=== PATIENT | female | born 1995 | race Caucasian/White ===

== ENCOUNTER 2017-01-07 15:26 | Emergency (ER) | payer OTHER ==
--- NOTE | 2017-01-07 15:30 | PDOC ---
Attending Attestation - Resident Resident Name: Cole Smith - ED Attending Attestation I have performed the following: I have examined & evaluated the patient, The case was reviewed & discussed with the resident, I agree w/resident's findings & plan, Exceptions are as noted - HPI HPI: 01/07/17 15:30 Heroid Overdose - Physicial Exam PE: 01/07/17 15:30 Barely Breathing - Responds to deep painful stimuli - Medical Decision Making 01/07/17 15:[address] Smith Assessment and Plan
[2017-01-07 15:41] VITALS: TEMP 98.2; BMI 23.8
[2017-01-07] MEDS ORDERED: NALOXONE HCL 0.4 MG/ML VIAL ONE (15:43)
[2017-01-07] MEDS ORDERED: SODIUM CHLORIDE 1,000 ML IV STA (15:52)
--- NOTE | 2017-01-07 15:53 | PDOC ---
History of Present Illness - General Chief Complaint: Overdose Stated Complaint: OVERDOSE Time Seen by Provider: 01/07/17 15:29 History Source: Patient, Friend - History of Present Illness Initial Comments: 01/07/17 15:48 Patient is a 21F with history of asthma here today via private vehicle for opiate overdose. Patient's friend reports that she snorted two bags of heroin just prior to presentation. He found her down and cyanotic. She was unresponsive to water splashed on her face and sternal rub. She was then brought in by her friend. Her friend reports no vomiting. Past History - Past Medical History Allergies/Adverse Reactions: Allergies Allergy/AdvReac Type Severity Reaction Status Date / Time No Known Allergies Allergy Verified 07/24/15 17:00 Home Medications: Ambulatory Orders Albuterol 0.083% Nebulizer Chhaya [Ventolin 0.083% Nebulizer Soln -] 1 neb NEB Q6H #30 vial 02/23/14 Albuterol Sulfate Inhaler - [Ventolin HFA Inhaler -] 2 inh PO Q4H 02/23/14 Metoclopramide HCl [Reglan] 10 mg PO TID PRN #20 tablet 07/24/15 Tramadol HCl [Ultram] 50 mg PO BID PRN #7 tablet 07/24/15 Asthma: Yes (reactive airway) - Immunization History TDAP Vaccination: Yes Immunization Up to Date: Yes - Psycho/Social/Smoking Cessation Hx Anxiety: No Suicidal Ideation: No Smoking Status: No Smoking History: Current every day smoker Have you smoked in the past 12 months: Yes Number of Cigarettes Smoked Daily: 10 Information on smoking cessation initiated: No Hx Alcohol Use: No Drug/Substance Use Hx: Yes Substance Use Type: Heroin, Marijuana Review of Systems - Review of Systems Comments:: 01/07/17 15:53 GENERAL/CONSTITUTIONAL: No fever or chills. No weakness. HEAD, EYES, EARS, NOSE AND THROAT: No change in vision. No ear pain or discharge. No sore throat. CARDIOVASCULAR: No chest pain or shortness of breath RESPIRATORY: No cough, wheezing, or hemoptysis. GASTROINTESTINAL: No nausea, vomiting, diarrhea or constipation. GENITOURINARY: No dysuria, frequency, or change in urination. MUSCULOSKELETAL: No joint or muscle swelling or pain. No neck or back pain. SKIN: No rash NEUROLOGIC: No headache, positive for loss of consciousness ALLERGIC/IMMUNOLOGIC: No hives or skin allergy. *Physical Exam - Vital Signs Last Vital Signs Temp Pulse Resp BP Pulse Ox 98.2 F 130 H 18 140/95 100 01/07/17 15:35 01/07/17 15:35 01/07/17 15:35 01/07/17 15:35 01/07/17 15:35 - Physical Exam Comments: 01/07/17 15:54 - Initially GENERAL: Sleepy and difficult to arouse HEAD: No signs of trauma, normocephalic, atraumatic EYES: Pinpoint pupils sclera anicteric, conjunctiva clear ENT: Auricles normal inspection, hearing grossly normal, nares patent, oropharynx clear without exudates. LUNGS: No distress, speaks full sentences, clear to auscultation bilaterally HEART: Regular rate and rhythm, normal S1 and S2, no murmurs, rubs or gallops, peripheral pulses normal and equal bilaterally. EXTREMITIES: Normal inspection, Normal range of motion, no edema. No clubbing or cyanosis. Post-narcan GENERAL: Awake, alert, and fully oriented, in no acute distress HEAD: No signs of trauma, normocephalic, atraumatic EYES: EOMI, sclera anicteric, conjunctiva clear ENT: Auricles normal inspection, hearing grossly normal, nares patent, oropharynx clear without exudates. LUNGS: No distress, speaks full sentences, clear to auscultation bilaterally HEART: Regular rate and rhythm, normal S1 and S2, no murmurs, rubs or gallops, peripheral pulses normal and equal bilaterally. ABDOMEN: Soft, nontender, normoactive bowel sounds. No guarding, no rebound. No masses EXTREMITIES: Normal inspection, Normal range of motion, no edema. No clubbing or cyanosis. NEUROLOGICAL: Cranial nerves II through XII grossly intact. Normal speech, normal gait, no focal sensorimotor deficits SKIN: Warm, Dry, normal turgor, no rashes or lesions noted. Medical Decision Making - Medical Decision Making 01/07/17 15:56 21F with history of asthma coming in with drug overdose. Responsive to 0.8mg narcan. Alert, oriented, no focal neuro deficits, afebrile, no seizure activity reported. Tachycardic, vital signs otherwise stable and normal. Will give 1L of fluid, will monitor past narcan duration of action, then discharge. 01/07/17 16:58 Vital signs still normal and stable, normal mental status. In ED for 90 minutes from narcan. Discharged home. Educated on risks of heroin use. *DC/Admit/Observation/Transfer Diagnosis at time of Disposition: Diacetylmorphine overdose Qualifiers: Encounter type: initial encounter Injury intent: undetermined intent Qualified Code(s): T40.1X4A - Poisoning by heroin, undetermined, initial encounter - Discharge Dispostion Disposition: HOME Condition at time of disposition: Good Admit: No - Patient Instructions Printed Discharge Instructions: DI for Drug Overdose in Adults
[2017-01-07 17:08] VITALS: BP 118/76; PULSE 102
--- NOTE | 2017-01-17 23:16 | EKG ---
Test Reason : Blood Pressure : / mmHG Vent. Rate : 108 BPM Atrial Rate : 108 BPM P-R Int : 152 ms QRS Dur : 074 ms QT Int : 358 ms P-R-T Axes : 066 068 022 degrees QTc Int : 479 ms SINUS TACHYCARDIA POSSIBLE LEFT ATRIAL ENLARGEMENT BORDERLINE ECG NO PREVIOUS ECGS AVAILABLE Confirmed by PASTORA GARDINER MD ([id number]) on 01/17/2017 11:16:11 PM Referred By: Confirmed By:PASTORA GARDINER MD
== END 2017-01-07 17:08 | disposition home or self-care (01) ==
LOC: JER 15:26
PROC: 3E0337Z Introduction of Electrolytic and Water Balance Substance into Peripheral Vein, Percutaneous Approach (ICD-10-PCS; principal; 2017-01-07)
DX: T40.1X4A Poisoning by heroin, undetermined, initial encounter (principal); R40.20 Unspecified coma
CPT/HCPCS: 93005; 93010; 96360; 99282-25

== ENCOUNTER 2017-06-16 22:35 | Emergency (ER) | payer SELFPAY ==
[2017-06-16 22:58] VITALS: BP 127/85; PULSE 96; TEMP 98.6; BMI 24.4
--- NOTE | 2017-06-16 23:02 | PDOC ---
History of Present Illness - General Chief Complaint: Overdose Stated Complaint: Overdose Time Seen by Provider: 06/16/17 23:02 - History of Present Illness Initial Comments: 21 year old female [place] with PMH of heroin abuse presenting after a heroin overdose and in field narcan administration. Per EMS they found her in her car semi responsive and administered 2 MG of narcan with good response and subsequent sinus tachycardia. She was completely awake, alert, and oriented on my interview without obvious sign of intoxication. 06/17/17 02:48 Past History - Past Medical History Allergies/Adverse Reactions: Allergies Allergy/AdvReac Type Severity Reaction Status Date / Time No Known Allergies Allergy Verified 06/16/17 22:45 Home Medications: Ambulatory Orders Albuterol 0.083% Nebulizer Chhaya [Ventolin 0.083% Nebulizer Soln -] 1 neb NEB Q6H #30 vial 02/23/14 Albuterol Sulfate Inhaler - [Ventolin HFA Inhaler -] 2 inh PO Q4H 02/23/14 Asthma: Yes (reactive airway) - Immunization History TDAP Vaccination: Yes Immunization Up to Date: Yes - Suicide/Smoking/Psychosocial Hx Smoking Status: No Smoking History: Unknown if ever smoked Have you smoked in the past 12 months: No Number of Cigarettes Smoked Daily: 10 Information on smoking cessation initiated: No Hx Alcohol Use: No Drug/Substance Use Hx: No Substance Use Type: Heroin, Marijuana Review of Systems - Review of Systems Constitutional: No: Chills, Diaphoresis, Fever, Loss of Appetite HEENTM: No: Eye Pain, Blurred Vision, Double Vision, Cataracts Respiratory: No: Cough, Orthopnea, Shortness of Breath Cardiac (ROS): No: Chest Pain, Irregular Heart Rate, Palpitations, Syncope ABD/GI: No: Constipated, Diarrhea, Nausea, Vomiting : No: Burning, Dysuria, Discharge Musculoskeletal: No: Back Pain, Joint Pain Integumentary: No: Bruising, Change in Color, Flushing, Lesions Neurological: No: Headache, Numbness Psychiatric: Yes: Anxiety, Stressors, Mood Swings *Physical Exam - Vital Signs Last Vital Signs Temp Pulse Resp BP Pulse Ox 98.6 F 96 H 18 127/85 97 06/16/17 22:45 06/16/17 22:45 06/16/17 22:45 06/16/17 22:45 06/16/17 22:45 - Physical Exam General Appearance: Yes: Nourished, Appropriately Dressed. No: Apparent Distress HEENT: positive: EOMI, EULALIA, Normal ENT Inspection. negative: Normal Voice Neck: positive: Trachea midline, Normal Thyroid, Supple. negative: Tender, Rigid Respiratory/Chest: positive: Lungs Clear, Normal Breath Sounds. negative: Chest Tender, Respiratory Distress, Accessory Muscle Use Cardiovascular: positive: Regular Rhythm, Tachycardia. negative: Regular Rate Gastrointestinal/Abdominal: positive: Normal Bowel Sounds, Flat, Soft. negative : Tender Musculoskeletal: positive: Normal Inspection. negative: CVA Tenderness Extremity: positive: Normal Capillary Refill, Normal Inspection, Normal Range of Motion. negative: Tender Integumentary: positive: Normal Color, Dry, Warm Neurologic: positive: scale manager II-XII NML intact, Fully Oriented, Alert, Normal Response. negative: Normal Mood/Affect (Curses frequently and tends to get angry) Medical Decision Making - Medical Decision Making 21 year old female presenting 30 minutes after narcan administration. Patient slightly tachy to 104 on exam but otherwise well and not intoxicated. 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 We originally wanted to give one more dose of Narcan before discharging her but she refused. She was not expressing SI/HI during any part of our interactions and the overdose of heroin was complete accidental as she hasn't used in 8 months and her tolerance had declined. She understood the risks and she only took a half of a bag of heroin intranasally. She had a safe discharge with her mother. Gave follow up instructions and counselled her on seeking mental help at her school. At the end of the conversation, I gave her return precautions. 06/17/17 19:37 *DC/Admit/Observation/Transfer Diagnosis at time of Disposition: Narcotic overdose Qualifiers: Encounter type: initial encounter Injury intent: accidental or unintentional Qualified Code(s): T40.601A - Poisoning by unspecified narcotics, accidental ( unintentional), initial encounter - Discharge Dispostion Disposition: HOME Condition at time of disposition: Improved Admit: No - Referrals Referrals: Jeremy Iraheta MD [Primary Care Provider] - - Patient Instructions Printed Discharge Instructions: DI for Drug Overdose in Adults Additional Instructions: You overdosed on heroin today. Please stop using heroin. We gave you narcan which reversed the effects of the heroin at the receptor level. Please seek help with your school's mental health resources as they can help you stay sober. Please also avoid triggers or people that would want ot make you use heroin again. - Post Discharge Activity
--- NOTE | 2017-06-16 23:34 | PDOC ---
Attending Attestation - Resident Resident Name: Radha Chen - ED Attending Attestation I have performed the following: I have examined & evaluated the patient, The case was reviewed & discussed with the resident, I agree w/resident's findings & plan, Exceptions are as noted - HPI HPI: 06/17/17 00:01 patient use heroin just prior to presentation. Was given 2 mg of Narcan by EMS and is now awake. Pt is currently accompanied by mother - Physicial Exam PE: 06/17/17 00:00 *Physical Exam General Appearance: Yes: Appropriately Dressed. No: Apparent Distress, Intoxicated HEENT: positive: EOMI, EULALIA, Normal ENT Inspection, Normal Voice, TMs Normal, Pharynx Normal. negative: Pale Conjunctivae, Photophobia, Scleral Icterus (R), Scleral Icterus (L) Neck: positive: Trachea midline, Normal Thyroid, Supple. negative: Tender, Rigid, Carotid bruit, Stridor, Lymphadenopathy (R), Lymphadenopathy (L), Thyromegaly Respiratory/Chest: positive: Lungs Clear, Normal Breath Sounds. negative: Chest Tender, Respiratory Distress, Accessory Muscle Use, Labored Respiration, RES, Crackles, Rales, Rhonchi, Stridor, Wheezing, Dullness Cardiovascular: positive: Regular Rhythm, Regular Rate, S1, S2. negative: Edema , JVD, Murmur, Bradycardia, Tachycardia Vascular Pulses: Dorsalis-Pedis (R): 2+, Doralis-Pedis (L): 2+ Gastrointestinal/Abdominal: positive: Normal Bowel Sounds, Flat, Soft. negative : Tender, Organomegaly, Pulsatile Mass, Increased Bowel Sounds, Decreased BS, Distended, Guarding, Rebound, Hernia, Hepatomegaly, Spleenomegaly Lymphatic: negative: Adenopathy, Tenderness Musculoskeletal: positive: Normal Inspection. negative: CVA Tenderness, Decreased Range of Motion Extremity: positive: Normal Capillary Refill, Normal Inspection, Normal Range of Motion, Pelvis Stable. negative: Tender, Pedal Edema, Swelling, Erythema Integumentary: positive: Normal Color, Dry, Warm. negative: Cyanotic, Erythema , Jaundice, Rash Neurologic: positive: hitting coach II-XII NML intact, Fully Oriented, Alert, Normal Mood/ Affect, Motor Strength 5/5. negative: EOM Palsy, Facial Droop, Sensory Deficit - Medical Decision Making 06/17/17 00:02 Pt treated and released. Currently accompanied by mother. Mother will take her home.
[2017-06-16] MEDS ORDERED: NALOXONE HCL 0.4 MG/ML VIAL IVPUSH ONE (23:57)
[2017-06-16] MEDS ORDERED: NALOXONE HCL 0.4 MG/ML VIAL ONE (23:59)
[2017-06-17] MEDS ORDERED: NALOXONE HCL 0.4 MG/ML VIAL IVPUSH ONE
--- NOTE | 2017-06-19 08:43 | EKG ---
Test Reason : Blood Pressure : / mmHG Vent. Rate : 101 BPM Atrial Rate : 101 BPM P-R Int : 136 ms QRS Dur : 070 ms QT Int : 350 ms P-R-T Axes : 064 047 021 degrees QTc Int : 453 ms SINUS TACHYCARDIA OTHERWISE NORMAL ECG WHEN COMPARED WITH ECG OF 07-JAN-2017 15:35, NO SIGNIFICANT CHANGE WAS FOUND Confirmed by TONY MOSER MD ([id number]) on 06/19/2017 8:43:33 AM Referred By: Confirmed By:TONY MOSER MD
== END 2017-06-17 00:19 | disposition home or self-care (01) ==
LOC: JER 22:35
DX: T40.1X1A Poisoning by heroin, accidental (unintentional), initial encounter (principal); Y92.810 Car as the place of occurrence of the external cause
CPT/HCPCS: 93005; 93010; 99281-25

== ENCOUNTER 2019-01-02 13:59 | Inpatient (IN) | payer OTHER ==
[2019-01-02 16:08] VITALS: BMI 21.6
--- NOTE | 2019-01-02 17:09 | HP ---
COWS - Scale Resting Pulse: 0= [place] 80 or Below Sweatin= Chills/Flushing Restless Observation: 3= Extraneous Movement Pupil Size: 1= Pupils >than Normal Bone or Joint Aches: 1= Mild Discomfort Runny Nose/ Eye Tearin= Runny Nose/Eyes GI Upset > 30mins: 1= Stomach Cramp Tremor Observation: 0= None Yawning Observation: 0= None Anxiety or Irritability: 2=Irritable/Anxious Goose Flesh Skin: 0=Smooth Skin COWS Score: 11 CIWA Score Nausea/Vomitin-No Nausea/No Vomiting Muscle Tremors: None Anxiety: 2 Agitation: 4-Moderately Restless Paroxysmal Sweats: 2 Orientation: 0-Oriented Tacttile Disturbances: 0-None Auditory Disturbances: 0-None Visual Disturbances: 2-Mild Sensitivity Headache: 3-Moderate CIWA-Ar Total Score: 13 - Admission Criteria [facility] Guidelines: Admission for Medically Managed Detox: Requires at least one of the followin. CIWA greater than 12 2. Seizures within the past 24 hours 3. Delirium tremens within the past 24 hours 4. Hallucinations within the past 24 hours 5. Acute intervention needed for co occurring medical disorder 6. Acute intervention needed for co occurring psychiatric disorder 7. Severe withdrawal that cannot be handled at a lower level of care (continued vomiting, continued diarrhea, abnormal vital signs) requiring intravenous medication and/or fluids 8. Admission ROS [facility] Allergies/Adverse Reactions: Allergies Allergy/AdvReac Type Severity Reaction Status Date / Time peanut Allergy Mild Swelling Verified 01/02/19 15:57 bee venom protein (honey bee) Allergy Swelling Verified 01/02/19 15:57 No Known Drug Allergies Allergy Verified 01/02/19 17:25 History of Present Illness: This report was requested by: Nicole Marvin | Reference #: [id number] Others' Prescriptions Patient Name: Sarita Victor Date: 1995 Address: [address] [place] [address] Sex: Female Rx Written Rx Dispensed Drug Quantity Days Supply Prescriber Name 12/08/2018 12/08/2018 lorazepam 1 mg tablet 15 2 [facility] [employer] 03/14/2018 03/24/2018 suboxone 12 mg-3 mg sl film 30 30 JadonChristine whitleyab 01/03/2018 01/05/2018 buprenorphine-naloxone 8-2 mg sl tablet 30 15 Jorge Diop Patient Name: Leelee Victor Date: 1995 Address: [address] [place] [address] Sex: Female Rx Written Rx Dispensed Drug Quantity Days Supply Prescriber Name 11/27/2018 11/27/2018 chlordiazepoxide 5 mg capsule 33 5 DavidHilaria Andriy [employer] pt here requesting detox from heroin use , reports first age of use 19 , current daily use 10 bags IVDU in ancelmo UE , detox x 2 did not complete ( [facility] ) most recently 1 mo ago , latest heroin use yesterday evening , current symptoms as above . Longest sobriety x 7 months while taking Methadone . Abscess x one , OD " a lot " , latest Narcan administered 1 yr ago at [facility] pt was taking Suboxone 2 years ago , then Methadone 2017 - September 2018 [facility] MDD 130 mg , left voluntarily . cocaine : daily 50 $ via inhalation since 1 yr ago oxy: denies cannabis : daily 20 $ since age 14 etoh : 3 cups liquor /day x 5 years , denies seizures , + blackouts when drinking reports illicit xanax use 2 mg , latest use 3 days ago . tobacco : 1 ppd LMP September 2018 , IUD 2016 PMHX : asthma dx 2015 ( hospitalized 2015 , never intubated , has albuterol inhaler), hep C dx 2018 , no tx yet 2/2 ongoing [facility] . PShx : denies PSych : denies meds : inhaler Social hx : lives w/ mother , unemployed , finances habit through money from friends , BF , pawning [employer] . Legal : probation drug-related x 3 years . Exam Limitations: Clinical Condition - Ebola screening Have you traveled outside of the country in the last 21 days: No Have you had contact with anyone from an Ebola affected area: No Do you have a fever: No - Review of Systems Constitutional: See HPI, Chills, Loss of Appetite EENT: reports: Other (glasses myopia) Respiratory: reports: See HPI Cardiac: reports: No Symptoms Reported GI: reports: See HPI : reports: No Symptoms Reported Musculoskeletal: reports: See HPI Integumentary: reports: Other (ivdu ancelmo UE) Neuro: reports: Headache Endocrine: reports: No Symptoms Reported Psychiatric: reports: Orientated x3, Agitated, Anxious Patient History - Patient Medical History Hx Asthma: Yes (reactive airway) Hx Chronic Obstructive Pulmonary Disease (COPD): No - Smoking Cessation Smoking history: Unknown if ever smoked Have you smoked in the past 12 months: No Aproximately how many cigarettes per day: 10 Hx Chewing Tobacco Use: No - Substances abused Alcohol Substance route: Oral Frequency: 3-6 times per week Amount used: 3 cups hen[place] Age of first use: 17 Date of last use: 01/02/19 Heroin Substance route: Inhalation Frequency: Daily Amount used: 10 bags Age of first use: 19 Date of last use: 01/01/19 Crack Substance route: Smoking Frequency: Daily Amount used: $30 Age of first use: 22 Date of last use: 01/01/19 Family Disease History - Family Disease History Family Disease History: Other: Father (A & W ), Mother (A & W ), Sister (2 older sisters , no TRICIA ) Admission Physical Exam [facility] - Vital Signs Vital Signs: Vital Signs - 24 hr 01/02/19 15:54 Temperature 98 F Pulse Rate 70 Respiratory 18 Rate Blood Pressure 112/61 - Physical General Appearance: Yes: Mild Distress, Moderate Distress, Irritable, Anxious HEENTM: Yes: EOMI, Hearing grossly Normal, Normocephalic, Normal Voice Respiratory: Yes: Lungs Clear, Normal Breath Sounds, No Respiratory Distress, No Accessory Muscle Use Neck: Yes: No masses,lesions,Nodules, Trachea in good position Cardiology: Yes: Regular Rhythm, Regular Rate, S1, S2, Other (QTC 453 ms 2017) Abdominal: Yes: Non Tender, Flat, Soft, Increased Bowel Sounds Musculoskeletal: Yes: Gait Steady Extremities: Yes: Normal Range of Motion, Non-Tender Neurological: Yes: Fully Oriented, Alert, Motor Strength 5/5 Integumentary: Yes: Warm, Track Madrigal (ANCELMO UE antecubital no abscess) - Diagnostic (1) Opioid dependence Current Visit: Yes Status: Acute Qualifiers: Substance use status: in withdrawal Qualified Code(s): F11.23 - Opioid dependence with withdrawal (2) Cocaine dependence Current Visit: Yes Status: Chronic Qualifiers: Substance use status: uncomplicated Qualified Code(s): F14.20 - Cocaine dependence, uncomplicated (3) Nicotine dependence Current Visit: Yes Status: Acute Qualifiers: Nicotine product type: cigarettes (4) Cannabis dependence Current Visit: Yes Status: Chronic (5) Alcohol dependence Current Visit: Yes Status: Acute Qualifiers: Substance use status: in withdrawal Breathalyzer - Breathalyzer Breathalyzer: 0 Urine Drug Screen - Test Device Lot number: [id number] Expiration date: 10/06/20 - Control Is test valid?: Yes - Results Drug screen NEGATIVE: No Urine drug screen results: THC-Marijuana, JOSEPHINE-Cocaine, MOP-Opiates, OXY- Oxycodone, MTD-Methadone Inpatient Rehab Admission - Rehab Decision to Admit Inpatient rehab admission?: No
[2019-01-02] MEDS ORDERED: MELATONIN 5 MG TABLETS PO PRN (17:18)
[2019-01-02] MEDS ORDERED: MAGNESIUM CITRATE 300 ML BOTTLE PO PRN (17:18)
[2019-01-02] MEDS ORDERED: ACETAMINOPHEN 325 MG TABLET (FP) PO PRN ×2 (17:18)
[2019-01-02] MEDS ORDERED: BISMUTH SUBSALICYLATE 524 MG/30 ML UD PO PRN (17:18)
[2019-01-02] MEDS ORDERED: MAGNESIUM HYDROX 2400MG/30ML ORAL SUSPENSION 30 ML CUP PO PRN (17:18)
[2019-01-02] MEDS ORDERED: IBUPROFEN 400 MG TABLET (FP) PO PRN (17:18)
[2019-01-02] MEDS ORDERED: MAG HYDROX/AL HYDROX/SIMETH 30 ML UNIT-DOSE CUP PO PRN (17:18)
[2019-01-02] MEDS ORDERED: MENTHOL/PHENOL 1 EACH UD MM PRN (17:18)
[2019-01-02] MEDS ORDERED: chlordiazePOXIDE HCL 10 MG CAPSULE PO PRN (17:21)
[2019-01-02] MEDS ORDERED: ALBUTEROL SO4 0.083% IH SOL 2.5 MG/3 ML VIAL.NEB. NEB PRN (17:22)
[2019-01-02] MEDS: ALBUTEROL SO4 8 GM HFA INHALER IH SCH ×2 (18:24→21:12)
[2019-01-02] MEDS ORDERED: METHADONE HCL 10 MG TABLET (FOR DETOX USE ONLY) PO ONE (18:30)
[2019-01-02] MEDS: METHOCARBAMOL 500 MG TABLET PO PRN (19:08)
[2019-01-02] MEDS: NICOTINE POLACRILEX 2 MG GUM BUC PRN ×2 (19:08→21:08)
[2019-01-02] MEDS: hydrOXYzine PAMOATE 25 MG CAPSULE (FP) PO PRN (21:07)
[2019-01-02] MEDS: chlordiazePOXIDE HCL 25 MG CAPSULE PO SCH (21:07)
[2019-01-02] MEDS ORDERED: THIAMINE HCL 100 MG TABLET (FP) PO SCH (22:00)
[2019-01-03] MEDS: ALBUTEROL SO4 8 GM HFA INHALER IH SCH ×3 (05:03→10:41)
[2019-01-03] MEDS: chlordiazePOXIDE HCL 25 MG CAPSULE PO SCH (07:30)
[2019-01-03] MEDS ORDERED: METHADONE HCL 5 MG TABLET (FOR DETOX USE ONLY) ONE (09:19)
[2019-01-03] MEDS ORDERED: METHADONE HCL 10 MG TABLET (FOR DETOX USE ONLY) ONE (09:19)
[2019-01-03 09:36] VITALS: BP 113/55; PULSE 57; TEMP 98.6
[2019-01-03] MEDS ORDERED: METHADONE (DETOX) 20 MG, METHADONE (DETOX) 5 MG PO ONE (10:00)
[2019-01-03] MEDS ORDERED: PRENATAL VITAMINS W/ FOLIC ACID TABLET (FP) PO SCH (10:00)
[2019-01-03 10:09] LABS: HEMATOCRIT 36.7 % (32.4-45.2); HEMOGLOBIN 12.1 GM/dL (10.7-15.3); MCH 27.2 pg (25.7-33.7); MCHC 32.9 g/dl (32.0-36.0); MEAN CELL VOLUME 82.6 fl (80-96); MEAN PLT VOLUME 7.4 fl (7.5-11.1); PLATELET COUNT 321 K/MM3 (134-434); RBC 4.44 M/mm3 (3.60-5.2); RDW 14.2 % (11.6-15.6); WHITE BLOOD COUNT 5.3 K/mm3 (4.0-10.0)
[2019-01-03 10:23] LABS: ALBUMIN 3.5 g/dl (3.4-5.0); BILIRUBIN,TOTAL 0.4 mg/dL (0.2-1); BLOOD UREA NITROGEN 9.2 mg/dL (7-18); CALCIUM 9.2 mg/dL (8.5-10.1); CREATININE 0.7 mg/dL (0.55-1.3); POTASSIUM 4.1 mmol/L (3.5-5.1); TOT PROT 7.1 g/dl (6.4-8.2)
[2019-01-03] MEDS: hydrOXYzine PAMOATE 25 MG CAPSULE (FP) PO PRN (10:42)
[2019-01-03] MEDS: METHOCARBAMOL 500 MG TABLET PO PRN (10:42)
--- NOTE | 2019-01-03 10:57 | EKG ---
Test Reason : Blood Pressure : / mmHG Vent. Rate : 063 BPM Atrial Rate : 063 BPM P-R Int : 138 ms QRS Dur : 084 ms QT Int : 432 ms P-R-T Axes : 047 066 044 degrees QTc Int : 442 ms SINUS RHYTHM WITH PREMATURE ATRIAL COMPLEXES OTHERWISE NORMAL ECG WHEN COMPARED WITH ECG OF 16-JUN-2017 22:47, PREMATURE ATRIAL COMPLEXES ARE NOW PRESENT VENT. RATE HAS DECREASED BY 38 BPM Confirmed by SHANTI HIDALGO, TONY ([id number]) on 01/03/2019 10:56:38 AM Referred By: SAVI LOCKHART Confirmed By:TONY MOSER MD
--- NOTE | 2019-01-03 11:11 | PN ---
[facility] CIWA - CIWA Score Nausea/Vomitin-No Nausea/No Vomiting Muscle Tremors: 3 Anxiety: 2 Agitation: 3 Paroxysmal Sweats: 3 Orientation: 0-Oriented Tacttile Disturbances: 0-None Auditory Disturbances: 0-None Visual Disturbances: 0-None Headache: 0-None Present CIWA-Ar Total Score: 11 S COWS - Scale Resting Pulse: 0= [place] 80 or Below Sweatin= Chills/Flushing Restless Observation: 1= Difficult to Sit Still Pupil Size: 0= Normal to Room Light Bone or Joint Aches: 2= Severe Diffuse Aches Runny Nose/ Eye Tearin= Runny Nose/Eyes GI Upset > 30mins: 0= None Tremor Observation of Outstretched Hands: 1= Tremor [place], Not Seen Yawning Observation: 1= 1-2x During Session Anxiety or Irritability: 1=Feels Anxious/Irritable Goose Flesh Skin: 0=Smooth Skin COWS Score: 9 [facility] Progress Note (SOAP) Subjective: tired sweats irritable agitation body aches Objective: 01/03/19 11:34 Vital Signs Temperature 98.6 F 01/03/19 09:35 Pulse Rate 57 L 01/03/19 09:35 Respiratory Rate 16 01/03/19 09:35 Blood Pressure 113/55 L 01/03/19 09:35 O2 Sat by Pulse Oximetry (%) Laboratory Tests 01/03/19 01/03/19 07:00 07:00 WBC 5.3 RBC 4.44 Hgb 12.1 Hct 36.7 MCV 82.6 MCH 27.2 MCHC 32.9 RDW 14.2 D Plt Count 321 D MPV 7.4 L Sodium 140 Potassium 4.1 Chloride 105 Carbon Dioxide 29 Anion Gap 6 L BUN 9.2 Creatinine 0.7 Est GFR (CKD-EPI)AfAm 143.54 Est GFR (CKD-EPI)NonAf 123.85 Random Glucose 88 Calcium 9.2 Total Bilirubin 0.4 AST 25 ALT 39 Alkaline Phosphatase 70 Total Protein 7.1 Albumin 3.5 labs noted aaox3 ambulating no acute distress Assessment: 01/03/19 11:35 withdrawal sx Plan: continue detox increase fluids
[2019-01-03] MEDS ORDERED: diazePAM 5 MG TABLET PO PRN (12:29)
--- NOTE | 2019-01-03 13:23 | PN ---
S Progress Note Note: pt was admitted in withdrawals pt c/o of withdrawals and aggressive symptomatic management attempted however, pt in spite of extensive motivational counseling regarding the risk of relapse, OD, seizure, and or loss, pt chose to sign out AMA.
[2019-01-03] MEDS ORDERED: diazePAM 5 MG TABLET PO SCH (14:00)
--- NOTE | 2019-01-03 15:19 | DS ---
[facility] Detox Discharge Summary Admission Date: 01/02/19 - History Present History: Alcohol Dependence, Opioid Dependence - Physical Exam Results Vital Signs: Vital Signs Temperature 98.6 F 01/03/19 09:35 Pulse Rate 57 L 01/03/19 09:35 Respiratory Rate 16 01/03/19 09:35 Blood Pressure 113/55 L 01/03/19 09:35 O2 Sat by Pulse Oximetry (%) Pertinent Admission Physical Exam Findings: pt arrived in withdrawals Laboratory Tests 01/03/19 01/03/19 01/03/19 07:00 07:00 07:00 WBC 5.3 RBC 4.44 Hgb 12.1 Hct 36.7 MCV 82.6 MCH 27.2 MCHC 32.9 RDW 14.2 D Plt Count 321 D MPV 7.4 L Sodium 140 Potassium 4.1 Chloride 105 Carbon Dioxide 29 Anion Gap 6 L BUN 9.2 Creatinine 0.7 Est GFR (CKD-EPI)AfAm 143.54 Est GFR (CKD-EPI)NonAf 123.85 Random Glucose 88 Calcium 9.2 Total Bilirubin 0.4 AST 25 ALT 39 Alkaline Phosphatase 70 Total Protein 7.1 Albumin 3.5 RPR Titer Nonreactive labs noted pt is aaox3 ambulating in withdrawals but she chose to sign out regardless of all the changes in the medication regimen she agreed to take to assist with her detox. - Treatment Hospital Course: Detox Protocol Followed, Detoxed Safely, Responded well, Discharged Condition Good, Rehab Referral Accepted Patient has Accepted a Rehab Referral to: pt declined - Medication Discharge Medications: Ambulatory Orders Albuterol Sulfate Inhaler - [Ventolin HFA Inhaler -] 2 inh PO Q4H 02/23/14 - Diagnosis (1) Alcohol dependence Status: Acute Qualifiers: Substance use status: in withdrawal (2) Asthma Status: Chronic Qualifiers: Asthma severity: mild Asthma persistence: unspecified Asthma complication type: uncomplicated Qualified Code(s): J45.909 - Unspecified asthma, uncomplicated (3) Concussion Status: Acute Qualifiers: Encounter type: initial encounter Loss of consciousness presence/duration: with LOC of 30 min or less Qualified Code(s): S06.0X1A - Concussion with loss of consciousness of 30 minutes or less, initial encounter (4) Nicotine dependence Status: Chronic Qualifiers: Nicotine product type: cigarettes Substance use status: uncomplicated Qualified Code(s): F17.210 - Nicotine dependence, cigarettes, uncomplicated (5) Opioid dependence Status: Chronic Qualifiers: Substance use status: uncomplicated Qualified Code(s): F11.20 - Opioid dependence, uncomplicated (6) Cannabis dependence Status: Chronic (7) Cocaine dependence Status: Chronic Qualifiers: Substance use status: uncomplicated Qualified Code(s): F14.20 - Cocaine dependence, uncomplicated - AMA Did Patient Leave Against Medical Advice: Yes
[2019-01-04] MEDS ORDERED: chlordiazePOXIDE 5 MG CAPSULE PO SCH (05:00)
[2019-01-04] MEDS ORDERED: METHADONE HCL 10 MG TABLET (FOR DETOX USE ONLY) PO ONE (10:00)
[2019-01-05] MEDS ORDERED: chlordiazePOXIDE HCL 10 MG CAPSULE PO PRN
[2019-01-05] MEDS ORDERED: chlordiazePOXIDE HCL 10 MG CAPSULE PO SCH (05:00)
[2019-01-05] MEDS ORDERED: diazePAM 5 MG TABLET PO SCH (06:00)
[2019-01-05] MEDS ORDERED: METHADONE (DETOX) 10 MG, METHADONE (DETOX) 5 MG PO ONE (10:00)
[2019-01-06] MEDS ORDERED: chlordiazePOXIDE HCL 10 MG CAPSULE PO ONE (05:00)
[2019-01-06] MEDS ORDERED: diazePAM 5 MG TABLET PO ONE (06:00)
[2019-01-06] MEDS ORDERED: METHADONE HCL 10 MG TABLET (FOR DETOX USE ONLY) PO ONE (10:00)
[2019-01-07] MEDS ORDERED: METHADONE HCL 5 MG TABLET (FOR DETOX USE ONLY) PO ONE (06:00)
== END 2019-01-03 13:10 | disposition left against medical advice (07) | DRG 770 ==
LOC: YASAS 13:59 → Y6N 17:36
PROVIDERS: ADMIT Surgery; ATTEND Surgery
PROC: HZ2ZZZZ Detoxification Services for Substance Abuse Treatment (ICD-10-PCS; principal; 2019-01-02)
DX: F10.230 Alcohol dependence with withdrawal, uncomplicated (principal); F11.23 Opioid dependence with withdrawal; F14.20 Cocaine dependence, uncomplicated; F12.20 Cannabis dependence, uncomplicated; F17.210 Nicotine dependence, cigarettes, uncomplicated; J45.909 Unspecified asthma, uncomplicated; Z91.010 Allergy to peanuts; Z91.038 Other insect allergy status
CPT/HCPCS: 36415; 80053; 81025; 85027; 86480; 86593; 93005; 93010

== ENCOUNTER 2020-09-26 14:23 | Emergency (ER) | payer OTHER ==
[2020-09-26 14:34] VITALS: BP 165/76; PULSE 61; TEMP 98.7; BMI 22.6
[2020-09-26] MEDS ORDERED: ONDANSETRON 4 MG/2 ML VIAL IVPUSH ONE (15:08)
[2020-09-26] MEDS ORDERED: LACTATED RINGERS SOLUTION 1000 ML INFUS.BAG IV ONE (15:08)
[2020-09-26] MEDS ORDERED: ONDANSETRON 4 MG/2 ML VIAL ONE (15:18)
[2020-09-26 15:28] LABS: BASO % 0.2 % (0-2.0); HEMATOCRIT 36.9 % (32.4-45.2); HEMOGLOBIN 12.5 GM/dL (10.7-15.3); LYMPH % 5.4 % (8-40); MCH 27.3 pg (25.7-33.7); MCHC 33.8 g/dl (32.0-36.0); MEAN PLT VOLUME 7.8 fl (7.5-11.1); MONO % 2.5 % (3.8-10.2); NEUT % 91.9 % (42.8-82.8); PLATELET COUNT 403 K/MM3 (134-434); RBC 4.55 M/mm3 (3.60-5.2); RDW 13.2 % (11.6-15.6); WHITE BLOOD COUNT 12.5 K/mm3 (4.0-10.0)
[2020-09-26 15:47] LABS: CHLORIDE 106 mmol/L (98-107); SODIUM 140 mmol/L (136-145)
[2020-09-26 15:49] LABS: ALBUMIN 4.3 g/dl (3.4-5.0); ANION GAP 7 MMOL/L (8-16); BLOOD UREA NITROGEN 8.6 mg/dL (7-18); CALCIUM 9.5 mg/dL (8.5-10.1); CO2 27 mmol/L (21-32)
[2020-09-26 15:50] LABS: GLUCOSE,RANDOM 118 mg/dL (74-106); LIPASE < 10 U/L (73-393)
[2020-09-26 15:52] LABS: SGOT/AST 58 U/L (15-37); SGPT/ALT 42 U/L (13-61)
[2020-09-26 15:53] LABS: CREATININE 0.7 mg/dL (0.55-1.3)
[2020-09-26 15:54] LABS: BILIRUBIN,TOTAL 1.1 mg/dL (0.2-1)
[2020-09-26 15:55] LABS: ALK PHOS 78 U/L (45-117)
[2020-09-26 16:22] LABS: HCG,QUALITATIVE URINE Negative
[2020-09-26 16:23] LABS: EPI CELLS 14 /uL (0-25.1); HYALINE CASTS 9 /uL (0-3.1); URINE APPEARANCE CLEAR; URINE BACTERIA 2633 /uL (0-1359); URINE BILIRUBIN NEGATIVE (NEGATIVE); URINE COLOR DK YELLOW; URINE GLUCOSE (UA) NEGATIVE (NEGATIVE); URINE KETONE 2+ (NEGATIVE); URINE LEUK ESTERASE 2+ (NEGATIVE); URINE NITRITE NEGATIVE (NEGATIVE); URINE PROTEIN 1+ (NEGATIVE); URINE RBC 11 /uL (0-23.9); URINE WBC 252 /uL (0-25.8)
[2020-09-26 16:47] LABS: ANISOCYTOSIS 1+; MACROCYTOSIS 0; PLATELET ESTIMATE NORMAL
== END 2020-09-26 16:45 | disposition home or self-care (01) ==
LOC: JER 14:23
PROC: 3E033GC Introduction of Other Therapeutic Substance into Peripheral Vein, Percutaneous Approach (ICD-10-PCS; principal; 2020-09-26)
DX: F11.23 Opioid dependence with withdrawal (principal); R11.2 Nausea with vomiting, unspecified
CPT/HCPCS: 36415; 80053; 81003; 83690; 84703; 85025; 87086; 87186; 99284-25

== ENCOUNTER 2021-03-05 21:36 | Inpatient (IN) | payer OTHER ==
[2021-03-05 23:01] VITALS: BMI 25.4
[2021-03-05] MEDS ORDERED: MAGNESIUM HYDROX 2400MG/30ML ORAL SUSPENSION 30 ML CUP PO PRN (23:33)
[2021-03-05] MEDS ORDERED: MAG HYDROX/AL HYDROX/SIMETH 30 ML UNIT-DOSE CUP PO PRN (23:33)
[2021-03-05] MEDS ORDERED: BISMUTH SUBSALICYLATE 524 MG/30 ML PO PRN (23:33)
[2021-03-05] MEDS ORDERED: ACETAMINOPHEN 325 MG TABLET (FP) PO PRN ×2 (23:33)
[2021-03-05] MEDS ORDERED: MAGNESIUM CITRATE 300 ML BOTTLE PO PRN (23:33)
[2021-03-05] MEDS ORDERED: NICOTINE POLACRILEX 2 MG GUM BUC PRN (23:33)
[2021-03-05] MEDS ORDERED: MENTHOL/PHENOL 1 EACH UD MM PRN (23:33)
[2021-03-05] MEDS ORDERED: IBUPROFEN 400 MG TABLET (FP) PO PRN (23:33)
[2021-03-05] MEDS ORDERED: ONDANSETRON *ODT* 4 MG TABLET SL PRN (23:33)
[2021-03-05] MEDS ORDERED: methaDONE HCL 10 MG TABLET (FOR DETOX USE ONLY) PO ONE (23:38)
[2021-03-05] MEDS ORDERED: cloNIDine HCL 0.1 MG TABLET PO PRN (23:38)
[2021-03-06] MEDS ORDERED: methaDONE HCL 10 MG TABLET (FOR DETOX USE ONLY) ONE ×2 (01:31→10:03)
[2021-03-06] MEDS: NICOTINE 21 MG/24 HOURS TOPICAL PATCH TD SCH (10:35)
[2021-03-06] MEDS: PRENATAL VITAMINS W/ FOLIC ACID TABLET (FP) PO SCH (10:36)
[2021-03-06 11:27] LABS: HEMATOCRIT 35.6 % (32.4-45.2); HEMOGLOBIN 12.6 GM/dL (10.7-15.3); MCH 28.4 pg (25.7-33.7); MCHC 35.4 g/dl (32.0-36.0); MEAN CELL VOLUME 80.2 fl (80-96); MEAN PLT VOLUME 7.4 fl (7.5-11.1); PLATELET COUNT 252 10^3/uL (134-434); RBC 4.43 M/mm3 (3.60-5.2); RDW 12.7 % (11.6-15.6); WHITE BLOOD COUNT 5.7 K/mm3 (4.0-10.0)
[2021-03-06 11:28] LABS: CALCIUM 9.4 mg/dL (8.5-10.1)
[2021-03-06 11:29] LABS: ALBUMIN 3.6 g/dl (3.4-5.0); BLOOD UREA NITROGEN 7.7 mg/dL (7-18)
[2021-03-06 11:32] LABS: CREATININE 0.5 mg/dL (0.55-1.3)
[2021-03-06 11:33] LABS: BILIRUBIN,TOTAL 0.5 mg/dL (0.2-1)
[2021-03-06 11:34] LABS: TOT PROT 7.7 g/dl (6.4-8.2)
[2021-03-06] MEDS: METHOCARBAMOL 500 MG TABLET PO PRN (22:22)
[2021-03-06] MEDS: THIAMINE HCL 100 MG TABLET (FP) PO SCH (22:22)
[2021-03-06] MEDS: MELATONIN 5 MG TABLETS PO SCH (22:23)
[2021-03-06] MEDS: diazePAM 5 MG TABLET PO PRN (22:23)
[2021-03-07] MEDS ORDERED: methaDONE HCL 10 MG TABLET (FOR DETOX USE ONLY) PO ONE (10:00)
[2021-03-07] MEDS: PRENATAL VITAMINS W/ FOLIC ACID TABLET (FP) PO SCH (10:38)
[2021-03-07] MEDS: NICOTINE 21 MG/24 HOURS TOPICAL PATCH TD SCH (10:38)
[2021-03-07] MEDS: diazePAM 5 MG TABLET PO PRN ×3 (10:40→22:29)
[2021-03-07] MEDS: METHOCARBAMOL 500 MG TABLET PO PRN ×3 (10:40→22:14)
[2021-03-07] MEDS: MELATONIN 5 MG TABLETS PO SCH (22:13)
[2021-03-07] MEDS: THIAMINE HCL 100 MG TABLET (FP) PO SCH (22:13)
[2021-03-08] MEDS ORDERED: methaDONE HCL 10 MG TABLET (FOR DETOX USE ONLY) ONE (09:35)
[2021-03-08] MEDS: diazePAM 5 MG TABLET PO PRN ×3 (10:36→22:03)
[2021-03-08] MEDS: PRENATAL VITAMINS W/ FOLIC ACID TABLET (FP) PO SCH (10:36)
[2021-03-08] MEDS: METHOCARBAMOL 500 MG TABLET PO PRN ×2 (10:38→16:48)
[2021-03-08] MEDS: NICOTINE 21 MG/24 HOURS TOPICAL PATCH TD SCH (10:40)
[2021-03-08] MEDS: MELATONIN 5 MG TABLETS PO SCH (22:03)
[2021-03-08] MEDS: THIAMINE HCL 100 MG TABLET (FP) PO SCH (22:03)
[2021-03-09] MEDS: METHOCARBAMOL 500 MG TABLET PO PRN (06:19)
[2021-03-09] MEDS: diazePAM 5 MG TABLET PO PRN (06:28)
[2021-03-09 08:57] VITALS: BP 129/82; PULSE 99; TEMP 97.1
[2021-03-09] MEDS: PRENATAL VITAMINS W/ FOLIC ACID TABLET (FP) PO SCH (09:06)
[2021-03-09] MEDS: NICOTINE 21 MG/24 HOURS TOPICAL PATCH TD SCH (09:06)
[2021-03-09] MEDS ORDERED: methaDONE HCL 10 MG TABLET (FOR DETOX USE ONLY) PO ONE (10:00)
== END 2021-03-09 10:06 | disposition home or self-care (01) | DRG 773 ==
LOC: YASAS 21:36 → Y3N 23:53
PROVIDERS: ADMIT Allergy & Immunology; ATTEND Allergy & Immunology
PROC: HZ2ZZZZ Detoxification Services for Substance Abuse Treatment (ICD-10-PCS; principal; 2021-03-05)
DX: F11.23 Opioid dependence with withdrawal (principal); F12.20 Cannabis dependence, uncomplicated; F17.210 Nicotine dependence, cigarettes, uncomplicated; F19.282 Other psychoactive substance dependence with psychoactive substance-induced sleep disorder; F41.9 Anxiety disorder, unspecified; J45.20 Mild intermittent asthma, uncomplicated; Z86.59 Personal history of other mental and behavioral disorders; Z91.010 Allergy to peanuts; Z91.030 Bee allergy status
CPT/HCPCS: 36415; 80053; 81025; 85027; 86780; 93005; 93010; C9803; J0735; U0003; U0005

== ENCOUNTER 2021-04-12 20:43 | Inpatient (IN) | payer OTHER ==
[2021-04-12 21:04] VITALS: BMI 24.6
[2021-04-12] MEDS ORDERED: ACETAMINOPHEN 325 MG TABLET (FP) PO PRN ×2 (22:32)
[2021-04-12] MEDS ORDERED: MENTHOL/PHENOL 1 EACH UD MM PRN (22:32)
[2021-04-12] MEDS ORDERED: ONDANSETRON *ODT* 4 MG TABLET SL PRN (22:32)
[2021-04-12] MEDS ORDERED: IBUPROFEN 400 MG TABLET (FP) PO PRN (22:32)
[2021-04-12] MEDS ORDERED: MAGNESIUM CITRATE 300 ML BOTTLE PO PRN (22:32)
[2021-04-12] MEDS ORDERED: MAG HYDROX/AL HYDROX/SIMETH 30 ML UNIT-DOSE CUP PO PRN (22:32)
[2021-04-12] MEDS ORDERED: BISMUTH SUBSALICYLATE 524 MG/30 ML PO PRN (22:32)
[2021-04-12] MEDS ORDERED: NICOTINE POLACRILEX 2 MG GUM BUC PRN (22:32)
[2021-04-12] MEDS ORDERED: MAGNESIUM HYDROX 2400MG/30ML ORAL SUSPENSION 30 ML CUP PO PRN (22:32)
[2021-04-12] MEDS ORDERED: methaDONE HCL 10 MG TABLET (FOR DETOX USE ONLY) PO ONE (22:53)
[2021-04-12] MEDS ORDERED: cloNIDine HCL 0.1 MG TABLET PO PRN (22:53)
[2021-04-12] MEDS: METHOCARBAMOL 500 MG TABLET PO PRN (23:55)
[2021-04-12] MEDS: hydrOXYzine PAMOATE 25 MG CAPSULE (FP) PO PRN (23:56)
[2021-04-13] MEDS ORDERED: methaDONE HCL 10 MG TABLET (FOR DETOX USE ONLY) ONE (09:32)
[2021-04-13] MEDS: PRENATAL VITAMINS W/ FOLIC ACID TABLET (FP) PO SCH (10:11)
[2021-04-13] MEDS: METHOCARBAMOL 500 MG TABLET PO PRN (10:11)
[2021-04-13] MEDS: NICOTINE 21 MG/24 HOURS TOPICAL PATCH TD SCH (10:12)
[2021-04-13] MEDS: hydrOXYzine PAMOATE 25 MG CAPSULE (FP) PO PRN ×2 (12:21→17:53)
[2021-04-13 13:07] LABS: HEMATOCRIT 37.1 % (32.4-45.2); HEMOGLOBIN 12.4 GM/dL (10.7-15.3); MCH 27.1 pg (25.7-33.7); MCHC 33.4 g/dl (32.0-36.0); MEAN CELL VOLUME 81.3 fl (80-96); MEAN PLT VOLUME 7.6 fl (7.5-11.1); PLATELET COUNT 298 10^3/uL (134-434); RBC 4.56 M/mm3 (3.60-5.2); RDW 13.6 % (11.6-15.6); WHITE BLOOD COUNT 4.8 K/mm3 (4.0-10.0)
[2021-04-13 13:12] LABS: BLOOD UREA NITROGEN 16.4 mg/dL (7-18); CALCIUM 9.2 mg/dL (8.5-10.1)
[2021-04-13 13:13] LABS: ALBUMIN 3.6 g/dl (3.4-5.0)
[2021-04-13 13:15] LABS: CREATININE 0.6 mg/dL (0.55-1.3)
[2021-04-13 13:17] LABS: BILIRUBIN,TOTAL 0.6 mg/dL (0.2-1); TOT PROT 8.1 g/dl (6.4-8.2)
[2021-04-13] MEDS: diazePAM 5 MG TABLET PO PRN ×2 (17:53→22:48)
[2021-04-13] MEDS ORDERED: MELATONIN 5 MG TABLETS PO SCH (22:00)
[2021-04-13] MEDS: THIAMINE HCL 100 MG TABLET (FP) PO SCH (22:46)
[2021-04-13] MEDS: traZODone HCL 100 MG TABLET (FP) PO SCH (22:46)
[2021-04-14] MEDS ORDERED: methaDONE HCL 10 MG TABLET (FOR DETOX USE ONLY) PO ONE (10:00)
[2021-04-14] MEDS: PRENATAL VITAMINS W/ FOLIC ACID TABLET (FP) PO SCH (11:03)
[2021-04-14] MEDS: diazePAM 5 MG TABLET PO PRN ×2 (11:05→22:18)
[2021-04-14] MEDS: METHOCARBAMOL 500 MG TABLET PO PRN ×2 (11:06→22:14)
[2021-04-14] MEDS: hydrOXYzine PAMOATE 25 MG CAPSULE (FP) PO PRN (11:06)
[2021-04-14] MEDS: NICOTINE 21 MG/24 HOURS TOPICAL PATCH TD SCH (11:09)
[2021-04-14] MEDS: traZODone HCL 100 MG TABLET (FP) PO SCH (22:14)
[2021-04-14] MEDS: THIAMINE HCL 100 MG TABLET (FP) PO SCH (22:14)
[2021-04-15] MEDS ORDERED: diazePAM 5 MG TABLET PO PRN ×2 (00:01)
[2021-04-15] MEDS ORDERED: methaDONE HCL 10 MG TABLET (FOR DETOX USE ONLY) ONE (09:52)
[2021-04-15] MEDS: PRENATAL VITAMINS W/ FOLIC ACID TABLET (FP) PO SCH (10:05)
[2021-04-15] MEDS: NICOTINE 21 MG/24 HOURS TOPICAL PATCH TD SCH (10:05)
[2021-04-15] MEDS: METHOCARBAMOL 500 MG TABLET PO PRN (10:05)
[2021-04-15] MEDS: hydrOXYzine PAMOATE 25 MG CAPSULE (FP) PO PRN (10:05)
[2021-04-15 13:49] VITALS: BP 109/69; PULSE 89; TEMP 97.5
[2021-04-16] MEDS ORDERED: methaDONE HCL 10 MG TABLET (FOR DETOX USE ONLY) PO ONE (10:00)
== END 2021-04-15 14:30 | disposition left against medical advice (07) | DRG 770 ==
LOC: YASAS 20:43 → Y6N 22:54
PROVIDERS: ADMIT Allergy & Immunology; ATTEND Allergy & Immunology
PROC: HZ2ZZZZ Detoxification Services for Substance Abuse Treatment (ICD-10-PCS; principal; 2021-04-12)
DX: F11.23 Opioid dependence with withdrawal (principal); F14.20 Cocaine dependence, uncomplicated; F12.20 Cannabis dependence, uncomplicated; F17.213 Nicotine dependence, cigarettes, with withdrawal; F41.9 Anxiety disorder, unspecified; F19.282 Other psychoactive substance dependence with psychoactive substance-induced sleep disorder; F19.280 Other psychoactive substance dependence with psychoactive substance-induced anxiety disorder; F43.10 Post-traumatic stress disorder, unspecified; F32.A Depression, unspecified; J45.20 Mild intermittent asthma, uncomplicated; Z91.038 Other insect allergy status; Z86.69 Personal history of other diseases of the nervous system and sense organs; Z56.0 Unemployment, unspecified
CPT/HCPCS: 36415; 80053; 81025; 85027; 86780; C9803; U0003; U0005